=== PATIENT | female | born 1975 | race African-American/Black ===

== ENCOUNTER 2016-12-05 05:10 | Day surgery (SDC) | payer OTHER ==
[2016-11-29 10:41] VITALS: BMI 26.6
--- NOTE | 2016-12-05 08:07 | HP ---
History & Physical Update - History History: No Change - Physical Physical: No Change - Assessment Assessment: No Change - Plan Plan: No Change (Pt with intermenstrual bleeding, endometrial polyp - for hysteroscopy, D&C and polypectomy)
[2016-12-05] MEDS ORDERED: MIDAZOLAM HCL 2 MG/2 ML SINGLE DOSE VIAL ONE (08:32)
--- NOTE | 2016-12-05 09:53 | OP ---
Operative Note - Note: Operative Date: 12/05/16 Pre-Operative Diagnosis: intermenstrual bleeding, endocervical polyp on ultrasound Operation: hysteroscopy, D&C Findings: small anterior endometrial polyp bilateral tubal ostea visualized Post-Operative Diagnosis: Same as Pre-op (with endometrial polyp) Surgeon: Elisha Soler Anesthesiologist/COM[employer]INE[employer] CHIEF: Francisco Perez Anesthesia: General (with LMA) Specimens Removed: endometrial currettings Operative Report Dictated: Yes
[2016-12-05] MEDS ORDERED: ACETAMINOPHEN 325 MG TABLET (FP) PO PRN (09:55)
[2016-12-05] MEDS ORDERED: IBUPROFEN 800 MG/8 ML IJ IVPB PRN (09:55)
[2016-12-05] MEDS ORDERED: LACTATED RINGERS SOLUTION 1,000 ML IV SCH (10:00)
[2016-12-05 10:36] VITALS: TEMP 97.5
[2016-12-05 13:04] VITALS: BP 105/59; PULSE 75
--- NOTE | 2016-12-06 12:48 | PATH ---
Surgical Pathology Report Patient Name: DEBO LING [facility]. Rec. #: [id number] /Age/Gender: 1975 (Age: 40) / F Account: [id number] Location: [facility] SURGICAL Taken: 12/05/2016 Received: 12/05/2016 Reported: 12/06/2016 Physicians: Elisha Soler M.D. Specimen(s) Received ENDOMETRIAL CURETTINGS Clinical History Polyps Final Diagnosis ENDOMETRIUM, CURETTAGE: FRAGMENTS OF PROLIFERATIVE AND DISORDERED PROLIFERATIVE ENDOMETRIUM WITH FOCAL AREAS SUGGESTIVE OF ENDOMETRIAL POLYP. FRAGMENTS OF BENIGN SQUAMOUS EPITHELIUM. Electronically Signed Prieto Sánchez M.D. Gross Description Received in formalin labeled "endometrial curettage" is a 2.5 x 2.4 x 0.3 cm aggregate of fong-pink soft tissue fragments. The formalin is filtered and the specimen is entirely submitted in one cassette. /12/05/201612/05/2016
--- NOTE | 2016-12-10 08:35 | OP ---
DATE OF OPERATION: 12/05/2016 PREOPERATIVE DIAGNOSIS: Intermenstrual bleeding, endometrial polyp. POSTOPERATIVE DIAGNOSIS: Intermenstrual bleeding, endometrial polyp. PROCEDURE: Diagnostic hysteroscopy, dilatation and curettage, and polypectomy. SURGEON: Elisha Soler DO ANESTHESIA: By Francisco Perez, with LMA anesthesia. ESTIMATED BLOOD LOSS: Minimal. COMPLICATIONS: None. SPECIMENS REMOVED: Included endometrial curettings and endometrial polyp. COUNTS: Sponge and instrument counts correct at the end of the case. DISPOSITION: Stable to PACU. BRIEF HISTORY AND PROCEDURE: The patient is a 40-year-old female who was seen in the office with complaints of abnormal bleeding in between her periods. The patient had an ultrasound which was suggestive of an endometrial polyp. The patient was counseled on her options and elected to undergo a hysteroscopy, D&C, and polypectomy. The patient was admitted to [facility] on December 05, 2016. Consents for the procedure were signed in the office and reconfirmed upon admission. The patient was then taken back to the operating room where she was given anesthesia by Francisco Perez CRNA, with an LMA. She was then prepped and draped in the dorsal lithotomy position and a hard timeout was performed. A speculum was placed in the vagina, and the anterior lip of the cervix was grasped with a tenaculum, and the cervix was dilated to accommodate a diagnostic hysteroscope which was advanced to the fundus. Bilateral tubal ostia were noted upon entry. Inferior polypoid tissue and an endocervical polyp were appreciated. A D&C and suction D&C were performed at this time, and at this point it appeared that the polyp was removed during the D&C portion of the procedure. Another look with the hysteroscope was completed. Bilateral ostia again were seen. No uterine perforation or trauma was appreciated. Endometrial polypoid tissue and polyp were noted to be removed. All instruments were removed from the vagina. Tenaculum sites were noted to be hemostatic. Specimens were sent to Pathology for permanent evaluation. Sponge and instrument counts were reported to be correct. Patient was awoken from anesthesia, in recovery in stable condition after the procedure. ELISHA SOLER DO /[id number]
== END 2016-12-05 12:20 | disposition home or self-care (01) ==
LOC: JASU-SURG 05:10 → MERGE 14:48
PROVIDERS: ATTEND Obstetrics & Gynecology
PROC: 0UDB8ZX Extraction of Endometrium, Via Natural or Artificial Opening Endoscopic, Diagnostic (ICD-10-PCS; 2016-12-05)
PROC: 0UB98ZX Excision of Uterus, Via Natural or Artificial Opening Endoscopic, Diagnostic (ICD-10-PCS; principal; 2016-12-05 09:00)
PROC: 0UBC8ZX Excision of Cervix, Via Natural or Artificial Opening Endoscopic, Diagnostic (ICD-10-PCS; 2016-12-05 09:00)
DX: N93.9 Abnormal uterine and vaginal bleeding, unspecified (principal); N84.0 Polyp of corpus uteri
CPT/HCPCS: 84703; 88305-TC; 94760